=== PATIENT | female | born 1965 | race Caucasian/White ===

== ENCOUNTER 2018-08-09 17:36 | Emergency (ER) | payer BC | END 2018-08-09 18:29 | disposition home or self-care (01) | LOC: M ED 17:36 | DX: J18.1 Lobar pneumonia, unspecified organism (principal); I10 Essential (primary) hypertension; Z86.79 Personal history of other diseases of the circulatory system; Z79.899 Other long term (current) drug therapy | CPT/HCPCS: 71046 ==

== ENCOUNTER → 2018-08-12 | Outpatient (REF) | payer BC ==
[2018-08-12 14:00] LABS: C REACTIVE PROTEIN QUANTITATIV 3.24 MG/DL (0.00-0.30)
== END ==
LOC: M LAB REF 13:34
DX: J30.9 Allergic rhinitis, unspecified (principal); J06.9 Acute upper respiratory infection, unspecified

== ENCOUNTER → 2021-03-22 | Outpatient (REF) | payer BC ==
[~2021-03-22] MED LIST: AMOX875T; AZEL0.055; LOSA25TA14; ZITHTAB PO
== END ==
LOC: M LAB REF 19:29 → M WUC 19:29
PROVIDERS: ATTEND Physician Assistant
DX: J02.9 Acute pharyngitis, unspecified (principal)

== ENCOUNTER 2021-07-18 18:57 | Emergency (ER) | payer BC ==
[~2021-07-18] VITALS: Ht 170.2 cm; Wt 74.9 kg
[2021-07-18 18:57] VITALS: BP 197/85
[2021-07-18] MEDS ORDERED: MONT10TA10 (19:14)
[2021-07-18] MEDS ORDERED: ALLE1TAB23 PO (19:14)
--- NOTE | 2021-07-19 17:38 | ECGEPIP ---
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
== END 2021-07-18 23:04 | disposition left against medical advice (07) ==
LOC: M ED 18:57
DX: Z53.21 Procedure and treatment not carried out due to patient leaving prior to being seen by health care provider (principal)

== ENCOUNTER → 2021-07-19 | Outpatient (REF) | payer BC ==
[~2021-07-19] MED LIST changes: +ALLE1TAB23 PO; +MONT10TA10
== END ==
LOC: M LAB REF 12:05
PROVIDERS: ATTEND Internal Medicine
DX: R07.9 Chest pain, unspecified (principal)

== ENCOUNTER → 2022-07-30 | Outpatient (REF) | payer BC ==
[~2022-07-30] MED LIST changes: +LOSA25TA13; -LOSA25TA14; -MONT10TA10; +MONT10TA97
== END ==
LOC: M LAB REF 16:41
PROVIDERS: ATTEND Internal Medicine
DX: M25.50 Pain in unspecified joint (principal)

== ENCOUNTER → 2022-10-23 | Outpatient (REF) | payer BC | LOC: M LAB REF 16:27 | PROVIDERS: ATTEND Internal Medicine | DX: E83.52 Hypercalcemia (principal) ==

== ENCOUNTER → 2024-01-10 | Outpatient (CLI) | payer BC ==
[~2024-01-10] MED LIST changes: -ALLE1TAB23 PO; +FEXO-157 PO
== END ==
LOC: M PLAIMG 14:15
PROVIDERS: ATTEND Internal Medicine
DX: Z15.01 Genetic susceptibility to malignant neoplasm of breast (principal); Z53.20 Procedure and treatment not carried out because of patient's decision for unspecified reasons

== ENCOUNTER → 2025-06-21 | Outpatient (REF) | payer BC ==
[~2025-06-21] MED LIST changes: -AZEL0.055; +AZEL1SPR4; -FEXO-157 PO; +FEXO-63 PO
== END ==
LOC: M LAB REF 19:19
PROVIDERS: ATTEND Student in an Organized Health Care Education/Training Program
DX: R30.0 Dysuria (principal)

== ENCOUNTER → 2025-06-22 | Outpatient (REF) | payer BC | LOC: M LAB REF 19:57 | PROVIDERS: ATTEND Physician Assistant | DX: R30.0 Dysuria (principal) ==

== ENCOUNTER → 2025-09-03 | Outpatient (REF) | payer BC | LOC: M LAB REF 12:04 | PROVIDERS: ATTEND Internal Medicine | DX: R31.9 Hematuria, unspecified (principal); N39.0 Urinary tract infection, site not specified ==

== ENCOUNTER → 2025-09-10 | Outpatient (REF) | payer BC | LOC: M LAB REF 11:54 | PROVIDERS: ATTEND Internal Medicine | DX: R31.9 Hematuria, unspecified (principal) ==

== ENCOUNTER → 2025-09-17 | Outpatient (REF) | payer BC | LOC: M LAB REF 12:53 | PROVIDERS: ATTEND Internal Medicine | DX: R31.9 Hematuria, unspecified (principal) ==

== ENCOUNTER → 2025-09-24 | Outpatient (CLI) | payer BC | LOC: M WHC 12:03 | PROVIDERS: ATTEND Internal Medicine | DX: R31.9 Hematuria, unspecified (principal) ==